=== PATIENT | female | born 1955 | race Hispanic/Latino ===

== ENCOUNTER 2017-01-05 09:21 | Day surgery (SDC) | payer OTHER ==
[2016-03-01 23:05] VITALS: BMI 28.5
[2017-01-05] MEDS ORDERED: Bupivacaine 0.5% Inj(30mL) ONE (11:02)
[2017-01-05] MEDS ORDERED: Lidocaine 1% Inj (20ml) ONE (11:02)
[2017-01-05] MEDS ORDERED: Lidocaine 1%/Epinephrine 1:100000 30 ml vial ONE (11:23)
[2017-01-05] MEDS ORDERED: Bacitracin 500 Units/gm Oint Foilpak UD ONE (11:47)
[2017-01-05] MEDS ORDERED: Bacitracin Ointment 30 GM TUBE ONE (11:51)
--- NOTE | 2017-01-05 12:02 | PCM.SURG1 ---
Surgeon's Initial Post Op Note - Surgeon's Notes Surgeon: Dr. Pfeiffer Delivery Person: Dr. collins Type of Anesthesia: Local Pre-Operative Diagnosis: inferior lip lesion Operative Findings: see op report Post-Operative Diagnosis: inferior lip lesion Operation Performed: lip lesion excision Specimen/Specimens Removed: lip lesion Estimated Blood Loss: EBL {In ML}: 1 Blood Products Given: N/A Drains Used: No Drains Post-Op Condition: Good Date of Surgery/Procedure: 01/05/17 Time of Surgery/Procedure: 12:02
[2017-01-05 12:20] VITALS: RESP 14; TEMP 98
[2017-01-05 12:21] VITALS: PULSE 70; O2SAT 95
[2017-01-05 12:27] VITALS: BP 122/70
--- NOTE | 2017-01-05 17:12 | OP ---
PROCEDURE DATE: 01/05/2017 PREOPERATIVE DIAGNOSIS: Lower lip hemangioma. POSTOPERATIVE DIAGNOSIS: Lower lip hemangioma. PROCEDURE PERFORMED: Excision of the lower lip hemangioma. SURGEON: Dr. Pfeiffer ANESTHESIOLOGIST: Dr. Henley ANESTHESIA: Local anesthesia. ESTIMATED BLOOD LOSS: Minimal. SPECIMEN: Lower lip hemangioma. INDICATION: The patient is a 61-year-old female with discoloration of the lower lip associated with occasional bleeding and discomfort. The patient was examined and was noted to have a fairly large he mangioma in the lower lip and therefore was scheduled for excision. DESCRIPTION OF PROCEDURE: The patient was brought to the operating room and placed on the operating table in supine position. The patient was connected to EKG, blood pressure and pulse oximeter monito rs. The patient then was prepped and draped in the usual sterile fashion in the supine position. Th e lip was exposed by placing a 4 x 4 behind the lip. First, a timeout procedure took place and everybody in the room agreed as to the patient's identity, diagnosis and procedure to be performed. Using lidocaine mixed with Marcaine and epinephrine, the area of the incision was carefully infiltrat ed and careful incision was made using a #15 blade in an elliptical fashion. Once the surface tissue of the lip was incised, careful dissection was done in order to expose the underlying vessels. The 2 feeding vessels were carefully identified and cauterized on the bottom and then the hemangioma was completely excised with the overlying mucosa. The edges of the mucosa were now reapproximated using 6-0 Prolene stitch in an interrupted fashion. Once the defect was closed, the incision was covered w ith bacitracin. The patient tolerated procedure well and there were no complications. The patient w as transferred to recovery room for further observation. Maulik Pfeiffer MD cc: [id number] TT: 01/05/2017 17:11:38 sn
== END 2017-01-05 12:27 | disposition home or self-care (01) ==
LOC: OPSURG 09:21
PROVIDERS: ATTEND General Practice
DX: D18.09 Hemangioma of other sites (principal)